=== PATIENT | female | born 1935 | race Caucasian/White ===

== ENCOUNTER 2017-11-27 14:14 | Observation (INO) | payer MEDICARE, OTHER ==
[2017-11-27] MEDS ORDERED: Nitroglycerin 0.2 MG/HR PATCH* (5 MG) TRANSDERM ONE (14:31)
[2017-11-27] MEDS ORDERED: Aspirin 81 mg CHEW TAB* 81 MG TAB.CHEW PO ONE (14:31)
--- NOTE | 2017-11-27 14:39 | ED ---
HPI Chest Pain - HPI Summary HPI Summary: This is sarah Jenkins documenting for attending Dr. Vince Elise This patient is a 82 year old F presenting to [facility] accompanied by her family with a chief complaint of waxing and waning CP since 11/26/17 PM. PMHx NC (small ) 11/19/17. She endorses SOB, dyspnea upon exertion, shoulder and arm pain causing decreased ROM, pedal edema. Pt denies abd pain, fever, and cough Pt denies PMHx DM, HTN, COPD, emphysema; pt quit smoking a couple of days ago. Pt notes that at 1315 she took NTG and 81mg ASA, which alleviated sx. - History of Current Complaint Chief Complaint: EDShortnessOfBreath Time Seen by Provider: 11/27/17 14:24 Hx Obtained From: Patient Onset/Duration: Started Hours Ago, Still Present Timing: Intermittent - waxing and waning Initial Severity: Moderate Current Severity: Moderate Pain Intensity: 6 Pain Scale Used: 0-10 Numeric Chest Pain Location: Diffuse Chest Pain Radiates: Yes Chest Pain Radiates To:: Arm - bilateral Character: Dyspnea at Exertion Aggravating Factor(s): Exertion Alleviating Factor(s): Medication - ASA, NTG, NTG 123 Associated Signs and Symptoms: Positive: Chest Pain, Shortness of Breath, Edema. Negative: Fever, Cough, Productive Cough, Nonproductive Cough, Abdominal Pain - Allergy/Home Medications Allergies/Adverse Reactions: Allergies Allergy/AdvReac Type Severity Reaction Status Date / Time codeine AdvReac Intermediate Nausea Verified 11/27/17 14:43 METAL Allergy Rash Uncoded 11/27/17 14:42 PMH/Surg Hx/FS Hx/Imm Hx Endocrine/Hematology History: Denies: Hx Diabetes, Hx Systemic Lupus Erythematosus, Hx Sickle Cell Disease Cardiovascular History: Reports: Hx Coronary Artery Disease, Hx Myocardial Infarction - 11/19/17 Denies: Hx Congestive Heart Failure, Hx Hypertension, Hx Pacemaker/ICD, Other Cardiovascular Problems/Disorders Respiratory History: Denies: Hx Asthma, Hx Chronic Obstructive Pulmonary Disease (COPD), Other Respiratory Problems/Disorders GI History: Denies: Other GI Disorders - urinary incontinence History: Reports: Other Problems/Disorders - bladder ca Denies: Hx Dialysis, Hx Renal Disease Musculoskeletal History: Reports: Hx Arthritis, Other Musculoskeletal History - see fx Denies: Hx Rheumatoid Arthritis, Hx Osteoporosis Sensory History: Reports: Hx Cataracts, Hx Contacts or Glasses - GLASSES Denies: Hx Deafness, Hx Hearing Aid Opthamlomology History: Reports: Hx Cataracts, Hx Contacts or Glasses - GLASSES EENT History: Denies: Hx Deafness Neurological History: Reports: Hx Migraine - OCCASSIONALLY Denies: Other Neuro Impairments/Disorders - Cancer History Cancer Type, Location and Year: bladder ca 02/2012 Hx Chemotherapy: Yes - bladder Hx Radiation Therapy: No - Surgical History Surgery Procedure, Year, and Place: feet and ankles 2013 fx from fall Hx Anesthesia Reactions: No Infectious Disease History: No Infectious Disease History: Denies: Traveled Outside the [place] in Last 30 Days - Family History Known Family History: Negative: Blood Disorder - Social History Occupation: Retired Hx Substance Use: No Substance Use Type: Reports: None Hx Tobacco Use: Yes Smoking Status (MU): Former Smoker - quit 11/24/17 Review of Systems Negative: Fever Positive: Chest Pain Positive: Shortness Of Breath, Other - dyspnea upon exertion. Negative: Cough Negative: Abdominal Pain Positive: no symptoms reported Positive: Arthralgia - bilateral shoulders, Myalgia - bilateral arms All Other Systems Reviewed And Are Negative: Yes Physical Exam - Summary Physical Exam Summary: Appearance: Well appearing, no pain distress Skin: warm, dry, reflects adequate perfusion Head/face: normal Eyes: EOMI, LEONORA ENT: normal Neck: supple, non-tender Respiratory: CTA, breath sounds present Cardiovascular: RRR, pulses symmetrical Abdomen: non-tender, soft Bowel: present Musculoskeletal: normal, strength/ROM intact Neuro: normal, sensory motor intact, A&Ox3 Triage Information Reviewed: Yes Vital Signs On Initial Exam: Initial Vitals Temp Pulse Resp BP Pulse Ox 98.5 F 66 18 128/62 99 11/27/17 14:16 11/27/17 14:16 11/27/17 14:16 11/27/17 14:16 11/27/17 14:16 Vital Signs Reviewed: Yes Diagnostics - Vital Signs Vital Signs Temp Pulse Resp BP Pulse Ox 11/27/17 14:16 98.5 F 66 18 128/62 99 - Laboratory Result Diagrams: 11/27/17 14:58 11/27/17 14:58 Lab Statement: Any lab studies that have been ordered have been reviewed, and results considered in the medical decision making process. - Radiology CXR Xray Interpretation: No Acute Changes Radiology Interpretation Completed By: Radiologist - No active disease. Dr. Clarke has reviewed this report. - EKG 1439 Cardiac Rate: Bradycardia - 57 EKG Rhythm: Sinus Bradycardia ST Segment: Normal Ectopy: None EKG Interpretation: No acute changes. Chest Pain Course/Dx - Course Course Of Treatment: An 82-year-old F presents to the ED with a CC of chest pain since 11/26/17 PM (last night). (+) CP, SOB, dyspnea upon exertion, bilateral arm and shoulder pain, and pedal edema. (-) Fever, cough, abd pain. "small" NC 11/19/17, denies PMHx HTN, DM, COPD, emphysema. States NTG, ASA alleviate sx. A CXR was (-). An EKG reveals sinus bradycardia at 57 BPM, no acute changes. In the ED course, pt was given ASA and NTG. - Chest Pain Differential Diagnosis/HQI/PQRI: Acute NC, ACS, Angina, CHF, Lower Respiratory Infection - Diagnoses Provider Diagnoses: Chest pain, rule out acute myocardial infarction - Provider Notifications Discussed Care Of Patient With: Marjan Hilton Time Discussed With Above Provider: 16:00 Instructed by Provider To: Other - Accepts admission. Discharge - Sign-Out/Discharge Documenting (check all that apply): Patient Departure - admit - Discharge Plan Condition: Fair Disposition: ADMITTED TO [facility] Referrals: Kristin Billingsley MD [Primary Care Provider] - - Billing Disposition and Condition Condition: FAIR Disposition: Admitted to [facility]
--- NOTE | 2017-11-27 14:49 | RAD ---
INDICATION: Chest pain COMPARISON: February 16, 2012 TECHNIQUE: An AP portable view obtained at 1437 hours is submitted. FINDINGS: Bones/Soft Tissues: There are no acute bony findings. Cardiomediastinal: The cardiomediastinal silhouette is normal. Lungs: There are no infiltrates. There is mild hyperinflation Pleura: There are no pleural effusions. Other: None IMPRESSION: NO ACTIVE DISEASE.
[2017-11-27 15:07] LABS: ABS Basophils 0.1 10^3/ul (0-0.2); ABS Eosinophils 0.1 10^3/ul (0-0.6); ABS Lymphocytes 1.7 10^3/ul (1.0-4.8); ABS Monocytes 0.7 10^3/ul (0-0.8); ABS Neutrophils 6.6 10^3/ul (1.5-7.7); ABS Nucleated RBC 0 10^3/ul; Eosinophil % 0.6 % (0-6); Hematocrit 38 % (35-47); Hemoglobin 12.9 g/dl (12.0-16.0); Mean Corpuscular HGB Conc 34 g/dl (31-36); Mean Corpuscular Hemoglobin 31 pg (27-31); Mean Corpuscular Volume 90 fL (80-97); Mean Platelet Volume 7.9 um3 (7.4-10.4); Nucleated Red Blood Cells % 0; Platelet Count 282 10^3/ul (150-450); Red Blood Count 4.21 10^6/ul (4.00-5.40); Red Cell Distribution Width 12 % (10.5-15); White Blood Count 9.2 10^3/ul (3.5-10.8)
[2017-11-27 15:26] LABS: EGFR Non-African American 66.1 (>60)
[2017-11-27 15:27] LABS: INR 0.98 (0.77-1.02)
[2017-11-27] MEDS ORDERED: Acetaminophen TAB* 325 MG PO PRN (17:00)
[2017-11-27] MEDS: Nitro Patch/OINT Remove TOPICAL SCH (21:32)
[2017-11-27] MEDS: predniSONE TAB* 10 MG PO SCH (21:33)
[2017-11-27] MEDS: Heparin VIAL(*) 5000 UNITS/ML VIAL (FIVE THOUSAND) SUBCUT SCH (21:33)
--- NOTE | 2017-11-28 03:24 | HP ---
CC: Dr. Billingsley * HISTORY AND PHYSICAL: DATE OF ADMISSION: 11/27/17 PRIMARY CARE PROVIDER: Dr. Billingsley. CHIEF COMPLAINT: Chest pain. HISTORY OF PRESENT ILLNESS: Ms. Calderon is an 82-year-old female with a history of at least 81-[id number] history of smoking who presents to the emergency room with complaints of chest pain. The patient states that for quite sometime, she has been experiencing bilateral shoulder pain. She has had a difficult time raising her arms. She had seen Dr. Billingsley for this earlier this week and was prescribed prednisone for concerns of polymyalgia rheumatica. At that visit, the patient also mentioned complaints of chest pain. There was concern of changes on the patient's EKG and she was therefore referred to see Dr. Del Cid for a stress test. The patient states, however, at home she had increasing chest pain with exertion. This is happening more frequently. She tells me that the pain would be stabbing in nature and seem to come and go. According to the Dr. Billingsley's note, the patient described having pain that lasted for 20 minutes at a time. The patient has never experienced anything like this in the past. She does note that on the day of admission, she had increased shortness of breath above her baseline. She also admits to feeling somewhat nauseous. At this point, the patient is chest pain free. PAST MEDICAL HISTORY: 1. Bladder cancer, status post TURBT. 2. History of latent TB, status post treatment in her 20s. PAST SURGICAL HISTORY: 1. TURBT. 2. Bilateral cataract surgery. 3. Bilateral foot surgery following a fall and fracture of both heels. MEDICATIONS: 1. Aspirin 81 mg p.o. daily. 2. Omeprazole 20 mg p.o. daily. 3. Prednisone 20 mg p.o. twice daily. 4. Nitroglycerin 0.4 mg SL q.5 minutes p.r.n. chest pain. ALLERGIES: CODEINE. FAMILY HISTORY: Mom at the age of 96. Dad at the age of 97. He reportedly had heart disease. SOCIAL HISTORY: The patient currently has been smoking 4 to 5 cigarettes per day. She states that she quit the day prior to this admission. She, however, has been smoking for the last 60 years and at her peak, she was smoking 1 pack per day. She denies any alcoholic use. She worked as a school RN. She is . She has 3 children. She indicates that her son, Cornelius, would be her healthcare proxy. REVIEW OF SYSTEMS: A complete 11-system review of systems is obtained. Pertinent positives and negatives are as per HPI. In addition, the patient complains of shoulder discomfort as noted above, but no excessive headaches, changes in vision or jaw claudication. PHYSICAL EXAMINATION GENERAL: The patient is a well-developed, thin, elderly female seen sitting up in the stretcher, in no acute distress. VITAL SIGNS: Blood pressure 141/82, pulse 60, respirations 19, temp 98.5, O2 sat 100% on room air. HEENT: Pupils are equal and round. Extraocular muscles are intact. Oropharynx is clear. Oral mucosa is moist. There is no submandibular, cervical , or supraclavicular adenopathy. Thyroid is not enlarged. No thyroid nodules are noted. PULMONARY: Lungs are clear to auscultation bilaterally. CARDIAC: Normal S1, S2. Regular rate and rhythm. I do not appreciate any murmurs. ABDOMEN: Bowel sounds present. Abdomen is soft, nontender and nondistended. MUSCULOSKELETAL: There is no cyanosis or clubbing of the digits. There is full active range of motion of all 4 extremities. SKIN: Warm and dry. There are no rashes. NEURO: Cranial nerves II through XII are grossly intact. Sensation is intact to light touch throughout. Strength is 5/5 and symmetric in both upper and lower extremities bilaterally. PSYCH: The patient is alert. She is oriented x3. Affect appears appropriate. DIAGNOSTIC STUDIES/LAB DATA: WBC 9.2, hemoglobin 12.9, hematocrit 38, platelets 282. INR 0.98. Sodium 139, potassium 3.3, chloride 100, CO2 of 28, BUN 15, creatinine 0.83, glucose 88, calcium 9.7. Bilirubin 0.4, AST 19, ALT 14 , alk phos 76. Troponin 0.01. BNP 39. Albumin 3.8. Procalcitonin less than 0.1. EKG reveals normal sinus rhythm without any acute ST-T wave abnormalities. Chest x- ray: No active disease. ASSESSMENT AND PLAN: Ms. Calderon is an 82-year-old female with a history of ongoing tobacco abuse, who presents to the emergency room with complaints of chest pain and shortness of breath. 1. Chest pain and shortness of breath. The patient's story is at times concerning for unstable angina in that she states that she is getting more and more frequent chest pain; however, she described the pain to me as a stabbing type pain that is there for a just a second and then gone. According to Dr. Billingsley's outpatient note, it sounds as if the patient has described pain that had been present for approximately 20 minutes at a time. The patient regardless should have a stress test. She will be ruled out with serial troponins and a followup EKG will be obtained tomorrow morning. The decision will need to be made whether or not the patient stays in the hospital over the weekend to the obtain the stress test on Wednesday versus going home and coming back for a stress test in the next couple of days. 2. Shortness of breath. I suspect that the patient has some baseline underlying chronic obstructive pulmonary disease given her many years of smoking. However, this has never truly been identified. It is possible that the shortness of breath may be cardiac related. For now, we will monitor her symptoms. She appears quite comfortable currently with a very good oxygen saturation. Her lungs are clear. The right middle lobe on the chest x-ray appears to have perhaps some infiltrate; however, this was not read by the radiologist and her procalcitonin is negative. Therefore, I will hold off on initiating any antibiotics. 3. Bilateral shoulder pain. The patient has been started on prednisone per Dr. Billingsley for possible polymyalgia rheumatica. She was found to have elevated inflammatory markers with a sed rate of 63 and a CRP of 33.19 on 11/22/17. The patient states that she has not noticed a significant improvement in her shoulder pain symptoms since initiating the prednisone which I suspect she would have dramatic improvement if this truly was polymyalgia rheumatica causing her symptoms. I do question if osteoarthritis may be the cause of her pain as she describes pain only with movement of her arms. 4. DVT prophylaxis. According to the Adult Thrombosis Prophylaxis Risk Factor Assessment Guide, the patient has a total risk factor score of 4, making her high risk. Heparin 5000 units subcutaneous q.8 hours will be utilized as DVT prophylaxis. 5. Code status is DNR. TIME SPENT: 65 minutes were spent admitting this patient of which greater than half was spent [id number] with the patient and her family reviewing her history and performing a physical exam as well as reviewing outside records. [id number]/CPS #: [id number] TAYLOR
[2017-11-28] MEDS: Heparin VIAL(*) 5000 UNITS/ML VIAL (FIVE THOUSAND) SUBCUT SCH ×3 (05:52→21:37)
[2017-11-28] MEDS: Aspirin 81 mg CHEW TAB* 81 MG TAB.CHEW PO SCH (08:18)
[2017-11-28] MEDS: predniSONE TAB* 10 MG PO SCH ×2 (08:18→21:37)
[2017-11-28] MEDS: Omeprazole CAP* 20 MG PO SCH (08:19)
--- NOTE | 2017-11-28 10:53 | PN ---
Subjective Date of Service: 11/28/17 Interval History: Ms. Calderon denies complaint today other than bilateral shoulder pain when she raises her arms. She denies chest pain, SOB, nausea, or abdominal pain. She reports that she quite smoking two days ago and is hopeful to kick this habit. Objective Active Medications: Acetaminophen (Tylenol Tab*) 650 mg PO Q4H PRN Aspirin (Aspirin 81 Mg Chew Tab*) 81 mg PO DAILY [facility] Heparin Sodium (Porcine) (Heparin Vial(*)) 5,000 units SUBCUT Q8HR [facility] Omeprazole (Prilosec Cap*) 20 mg PO DAILY@0730 [facility] Pharmacy Profile Note (Nitro Patch/Oint Remove*) 1 note TOPICAL BEDTIME DAVON Prednisone (Deltasone Tab*) 20 mg PO BID [facility] Vital Signs: Temp Pulse Resp BP Pulse Ox 97.6 F 52 16 127/62 99 11/28/17 07:44 11/28/17 07:44 11/28/17 07:44 11/28/17 07:44 11/28/17 07:44 Oxygen Devices in Use Now: None Appearance: Female lying in bed in NAD Eyes: No Scleral Icterus Ears/Nose/Mouth/Throat: Mucous Membranes Moist Neck: Trachea Midline Respiratory: Symmetrical Chest Expansion and Respiratory Effort, Clear to Auscultation Cardiovascular: NL Sounds; No Murmurs; No JVD, No Edema Abdominal: NL Sounds; No Tenderness; No Distention Lymphatic: No Cervical Adenopathy Extremities: No Edema Skin: No Rash or Ulcers Neurological: Alert and Oriented x 3, NL Muscle Strength and Tone Nutrition: Taking PO's Result Diagrams: 11/27/17 14:58 11/27/17 14:58 Assess/Plan/Problems-Billing Assessment: Ms. Calderon is an 82 yo female with extensive smoking history though no formal diagnosis of COPD and recent concern for polymyalgia rheumatica on prednisone who was admitted on 11/27/17 with chest pain. - Patient Problems (1) Chest pain Comment: - Chest pain free. - Trops negative.EKG with Q waves in V1-V2 but no old EKGs for comparison. - Plan for stress test in AM. - Continue aspirin. (2) Polymyalgia rheumatica Comment: - Continue prednisone. (3) COPD (chronic obstructive pulmonary disease) Comment: - No formal diagnosis with PFTs but has extensive smoking history. - No evidence of exacerbation. - Recommend outpatient PFTs, smoking cessation encouraged. (4) GERD (gastroesophageal reflux disease) Comment: - Continue omeprazole. (5) DVT prophylaxis Comment: - Heparin SQ. (6) Full code status Comment: Status and Disposition: OBV. Plan for stress test in AM. Anticipate discharge to home when medically stable.
[2017-11-28] MEDS ORDERED: Docusate CAP* 100 MG PO PRN (14:22)
[2017-11-28] MEDS ORDERED: Polyethylene Glycol 3350* 17 GM PACKET PO PRN (14:22)
[2017-11-28] MEDS ORDERED: Senna TAB PO PRN (14:22)
[2017-11-28] MEDS: Nitro Patch/OINT Remove TOPICAL SCH (21:41)
[2017-11-29] MEDS ORDERED: Melatonin 3 MG TAB PO PRN (01:16)
[2017-11-29] MEDS: Heparin VIAL(*) 5000 UNITS/ML VIAL (FIVE THOUSAND) SUBCUT SCH ×2 (05:15→14:03)
[2017-11-29] MEDS: Aspirin 81 mg CHEW TAB* 81 MG TAB.CHEW PO SCH (08:08)
[2017-11-29] MEDS: predniSONE TAB* 10 MG PO SCH (08:08)
[2017-11-29] MEDS: Omeprazole CAP* 20 MG PO SCH (08:08)
[2017-11-29 09:18] LABS: EGFR Non-African American 67.1 (>60)
--- NOTE | 2017-11-29 11:14 | PN ---
Subjective Date of Service: 11/29/17 Interval History: NO chest pain overnight. C/o bilat shoulder aching unchanged from admission. Denies abd pain n/v/d. Family History: Unchanged from Admission Social History: Unchanged from Admission Past Medical History: Unchanged from Admission Objective Active Medications: Acetaminophen (Tylenol Tab*) 650 mg PO Q4H PRN PRN Reason: PAIN Aspirin (Aspirin 81 Mg Chew Tab*) 81 mg PO DAILY [facility] Last Admin: 11/29/17 08:08 Dose: 81 mg Docusate Sodium (Colace Cap*) 100 mg PO BID PRN PRN Reason: CONSTIPATION Heparin Sodium (Porcine) (Heparin Vial(*)) 5,000 units SUBCUT Q8HR [facility] Last Admin: 11/29/17 05:15 Dose: 5,000 units Melatonin (Melatonin) 3 mg PO BEDTIME PRN PRN Reason: SLEEP Last Admin: 11/29/17 01:27 Dose: 3 mg Omeprazole (Prilosec Cap*) 20 mg PO DAILY@0730 [facility] Last Admin: 11/29/17 08:08 Dose: 20 mg Polyethylene Glycol/Electrolytes (Miralax*) 17 gm PO DAILY PRN PRN Reason: CONSTIPATION Prednisone (Deltasone Tab*) 20 mg PO BID [facility] Last Admin: 11/29/17 08:08 Dose: 20 mg Senna (Senokot Tab*) 1 tab PO BEDTIME PRN PRN Reason: CONSTIPATION Last Admin: 11/28/17 21:37 Dose: 1 tab Vital Signs - 8 hr 11/29/17 11/29/17 03:09 07:13 Temperature 98.5 F 97.9 F Pulse Rate 55 54 Respiratory 20 16 Rate Blood Pressure 124/62 123/58 (mmHg) O2 Sat by Pulse 98 97 Oximetry Oxygen Devices in Use Now: None Appearance: appears comfortable resting in bed Eyes: No Scleral Icterus Ears/Nose/Mouth/Throat: Clear Oropharnyx, Mucous Membranes Moist Neck: NL Appearance and Movements; NL JVP, Trachea Midline Respiratory: Symmetrical Chest Expansion and Respiratory Effort, Clear to Auscultation Cardiovascular: NL Sounds; No Murmurs; No JVD, No Edema Abdominal: NL Sounds; No Tenderness; No Distention Extremities: No Edema, No Clubbing, Cyanosis Skin: No Rash or Ulcers Neurological: Alert and Oriented x 3 Nutrition: Taking PO's Result Diagrams: 11/27/17 14:58 11/29/17 08:36 Assess/Plan/Problems-Billing Assessment: Ms. Calderon is an 82 yo female with extensive smoking history though no formal diagnosis of COPD and recent concern for polymyalgia rheumatica on prednisone who was admitted on 11/27/17 with chest pain. - Patient Problems (1) Chest pain Status: Acute Code(s): R07.9 - CHEST PAIN, UNSPECIFIED SNOMED Code(s): 21865920 Comment: - Chest pain free- stress this AM, - Trops trended and negative - EKG with Q waves in V1-V2 but no old EKGs for comparison. - Continue aspirin. (2) COPD (chronic obstructive pulmonary disease) Status: Acute Code(s): J44.9 - CHRONIC OBSTRUCTIVE PULMONARY DISEASE, UNSPECIFIED SNOMED Code(s): 53091585 Comment: - No formal diagnosis with PFTs but has extensive smoking history. - No evidence of exacerbation. - Recommend outpatient PFTs, smoking cessation encouraged. (3) GERD (gastroesophageal reflux disease) Status: Acute Code(s): K21.9 - GASTRO-ESOPHAGEAL REFLUX DISEASE WITHOUT ESOPHAGITIS SNOMED Code(s): 806135845 Comment: - Continue omeprazole. (4) DVT prophylaxis Status: Acute Code(s): UBJ1020 - SNOMED Code(s): 045038327 Comment: - Heparin SQ. (5) Full code status Status: Acute Code(s): Z78.9 - OTHER SPECIFIED HEALTH STATUS SNOMED Code(s) : 174474783 Comment: Status and Disposition: OBV. discharge to home
--- NOTE | 2017-11-29 12:41 | RAD ---
Edited for charges. Indication: Chest pain. Myocardial perfusion scan was performed utilizing 1 day protocol. Rest myocardial perfusion was performed after intravenous injection of 10.44 mCi of technetium 99 and tetrofosmin. Pharmacological stress was applied and 25.4 mCi of technetium 99 and tetrofosmin was injected for the stress portion of the study. There is homogeneous distribution of the radiotracer throughout the left ventricle. There is no evidence of any fixed or reversible perfusion defect identified. Ejection fraction at stress is 83%. Evaluation of wall motion demonstrates no focal wall motion abnormality. IMPRESSION: No evidence of any fixed or reversible perfusion defect is identified. ASSESSMENT: Low risk Based on imaging criteria from ACC/AHA 2002 Guideline Update for the Management of Patients With Chronic Stable Angina Table 23. Noninvasive Risk Stratification. MTDD
[2017-11-29] MEDS ORDERED: Regadenoson* 0.4 MG/5 ML SYRINGE ONE (13:50)
[2017-11-29 16:30] VITALS: BP 117/55
[2017-11-30 19:06] LABS: B garinii/B afzelii PCR Negative (Negative)
--- NOTE | 2017-12-01 02:58 | DS ---
DISCHARGE SUMMARY: DATE OF ADMISSION: 11/27/17 DATE OF DISCHARGE: 11/29/17 PROVIDER: Kaye Currie NP. ATTENDING PHYSICIAN: Dr. Corinne Saavedra * (dictated by Kaye Currie NP). PRIMARY CARE PROVIDER: Dr. Billingsley. PRIMARY DIAGNOSIS: Chest pain, noncardiac. SECONDARY DIAGNOSES: 1. History of latent TB. 2. History of bladder cancer. STUDIES COMPLETED WHILE IN THE HOSPITAL: The patient had a chest x-ray on 11/27. Radiologist impression: No active disease. She had a nuclear stress test on 11/29/17, impression was low risk, no evidence of any fixed or reversible perfusion deficits were identified. DISCHARGE MEDICATIONS: No new home medications. Continued home medications: 1. Nitroglycerin 0.4 mg q.5 minutes as needed. 2. Prednisone 20 mg p.o. b.i.d. 3. Omeprazole 20 mg p.o. daily. 4. Aspirin 81 mg p.o. daily. 5. Acetaminophen 650 mg q.4 hours as needed for pain. HISTORY OF PRESENT ILLNESS AND HOSPITAL COURSE: Ms. Calderon is an 82-year- old female patient who has a history of at least 40 pack-year history of smoking , who presented to the emergency room with complaints of chest pain. The patient states that for quite sometime, she has been experiencing bilateral shoulder pain and difficult to time raising her arms. She has seen Dr. Billingsley earlier this week and was prescribed prednisone for concerns of polymyalgia rheumatic. At that visit, the patient also mentioned complaints of chest pain. There was a concern of changes in the patient's EKG; therefore, she was referred to Dr. Del Cid for a stress test. The patient states, however, at home she had increased chest pain with exertion and that was happening more frequently. She reports that the pain was stabbing in nature and seem to come and go. According to the Dr. Billingsley's note, the patient describes the pain is lasting approximately 20 minutes at a time. The patient has never experienced anything like this in the past and does note on the day of admission, she had increased shortness of breath above her baseline. She was also feeling somewhat nauseous. Due to these concerns of chest pain and shortness of breath , we were asked to see and evaluate her for admission in the emergency room. She was placed on the monitor, routine lab work was drawn. Her troponin remains negative at 0.01, 0.00, and 0.03. Her BNP was 39, procalcitonin was less than 0.1. Her potassium level on admission was low at 3.3. While in the hospital, the patient was monitored on telemetry. She had no arrhythmias during her hospitalization. She did have a nuclear stress test with low risk that showed no perfusion deficits. Given her negative stress test and no further complaints, the patient is stable for discharge home. Ms. Calderon will be discharged home today. Vital signs are as follows: Temperature was 98.3, heart rate is 65, respirations 18, O2 saturation 99%, blood pressure is 117/55. DISCHARGE PLAN: Ms. Calderon will be discharged back home. Activity as tolerated. 1. Chest pain. I suspect that this chest pain is noncardiac. This could be muscle skeletal in nature. She does complain of bilateral shoulder pain worse with movement and was concerned about Lyme disease. I did add a Lyme titer. I told her she will need to follow up with her primary care provider for results of her Lyme titer. She can take Tylenol as needed for pain or ibuprofen. Her troponins remain negative throughout her hospitalization. She did have a negative nuclear stress test. 2. Hypokalemia. She did have hypokalemia during her hospitalization. Her potassium was replaced and repeat potassium was 4.9. The patient should follow up with her primary care provider in 1 to 2 weeks. The patient was asked to return to the emergency room for any increased chest pain or shortness of breath or any other concerning symptoms. This is a summarization of her hospitalization. For further details, please see the entire medical record. TIME SPENT: Time spent on this discharge was approximately 60 minutes, greater than half that time was spent with the patient discussing discharge plans and instructions. CONDITION AT DISCHARGE: Stable. KAYE CURRIE NP [id number]/[facility] #: [id number] TAYLOR
== END 2017-11-29 17:28 | disposition home or self-care (01) ==
LOC: ED 14:14 → MEDTELE 17:18
PROVIDERS: ADMIT Hospitalist; ATTEND Internal Medicine
DX: R07.9 Chest pain, unspecified (principal); J44.9 Chronic obstructive pulmonary disease, unspecified; K21.9 Gastro-esophageal reflux disease without esophagitis; R06.02 Shortness of breath; R60.9 Edema, unspecified; E87.6 Hypokalemia; Z87.891 Personal history of nicotine dependence; Z79.82 Long term (current) use of aspirin; Z85.51 Personal history of malignant neoplasm of bladder; Z86.11 Personal history of tuberculosis
CPT/HCPCS: 36415; 71045; 78452; 80048; 80053; 83735; 83880; 84145; 84484; 85025; 85610; 85730; 87476; 87798; 93005; 93017; 99284; A9270-GY; A9502; G0378; J1644; J2785; J7512

== ENCOUNTER 2018-08-17 05:51 | Day surgery (SDC) | payer MEDICARE, OTHER ==
--- NOTE | 2018-08-04 06:31 | HP ---
CC: Dr. Billingsley * HISTORY AND PHYSICAL: DATE OF PLANNED ADMISSION AND SURGERY: 08/17/18 HISTORY OF PRESENT ILLNESS: Ms. Calderon is an 83-year-old white female who is admitted with multiple suspicious bladder lesions for cystoscopy and excisional biopsies. Ms. 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 At that time, the CT urogram showed normal upper tracts and normal ureters and the only abnormal finding was the filling defect in the right base of the bladder. She underwent a cystoscopy and excisional biopsy of the bladder lesion. The pathology showed a low-grade noninvasive transitional cell carcinoma. The patient was given 1 dose of intravesical mitomycin-C in the recovery room. She did not receive BCG treatments. She had follow up periodic surveillance cystoscopies, which showed no evidence of recurrent disease. She had remained totally asymptomatic having no voiding symptoms and no gross hematuria. She had a recent surveillance cystoscopy in the office. The examination showed multiple flat lesions in the left lateral bladder wall that had the gross appearance of flat, low-grade transitional cell carcinomas. The patient now is admitted for excisional biopsies and fulguration of the above lesions. PAST MEDICAL HISTORY AND SYSTEM REVIEW: The patient had been a chronic heavy smoker of half pack per day for almost 50 years. She has minimal symptoms of COPD. She denies any cardiac or pulmonary symptoms. She also denies any gross hematuria or any voiding symptoms. The patient has chronic constipation and is on laxatives. MEDICATIONS: She is on no prescription medications. ALLERGIES: She reports being allergic to CODEINE, KEFLEX, and OXYCODONE. FAMILY HISTORY: Negative. PHYSICAL EXAMINATION GENERAL: She is a pleasant white female who looks good for her age. VITAL SIGNS: Blood pressure 120/80, pulse of 80, oxygen saturation 98% on room air. LUNGS: Clear and resonant without wheezing. HEART: Regular and rhythmic. No murmurs. ABDOMEN: Soft. No masses, no tenderness. No CVA tenderness. PELVIC: Examination done at the time of the cystoscopy showed no pelvic masses. IMPRESSION: Suspicious recurrent flat bladder lesions probably representing low- grade transitional cell carcinomas of the bladder wall. PLAN: Cystoscopy and excisional biopsies and fulgurations of the above lesions. If the lesions do confirm that they are transitional cell carcinomas, workup of the upper tracts with CT urogram will be performed. I discussed the above plans in detail with the patient. All her questions were answered. [id number]/[facility] #: [id number] MTDD
[~2018-08-17 05:51] MED LIST: Buffered Lidocaine 1% SYRIN* 1 ML/SYRINGE INTRADERM ONE; Ondansetron TAB* 4 MG PO ONE
[2018-08-17] MEDS ORDERED: Dexamethasone TAB* 6 MG PO ONE (06:00)
[2018-08-17] MEDS ORDERED: Lactated Ringers 1000 ML Bag* 1,000 ML IV SCH (06:00)
[2018-08-17] MEDS ORDERED: Famotidine IV* 10 MG/ML 2 ML (20 mg) IV ONE (06:00)
[2018-08-17] MEDS ORDERED: Ondansetron ODT TAB* 4 MG ONE (06:20)
[2018-08-17] MEDS ORDERED: Dexamethasone TAB* 4 MG ONE (06:21)
[2018-08-17] MEDS ORDERED: Famotidine IV* 10 MG/ML 2 ML (20 mg) ONE (06:21)
[2018-08-17] MEDS ORDERED: Levofloxacin 500 MG IVPREMIX(* 500 MG/100 ML BAG IVPB ONE (06:21)
[2018-08-17] MEDS ORDERED: Buffered Lidocaine 1% SYRIN* 1 ML/SYRINGE INTRADERM ONE (06:21)
[2018-08-17] MEDS ORDERED: Naloxone* 0.4 MG/ML 1 ML VIAL IV PRN (06:37)
[2018-08-17] MEDS ORDERED: Morphine 4 MG/ML VIAL (1 ml) 4 MG/ML VIAL IV PRN (06:37)
[2018-08-17] MEDS ORDERED: fentaNYL* 50 MCG/ML 2 ML VIAL (100 MCG VIAL) IV PRN (06:37)
[2018-08-17] MEDS ORDERED: PROCHLORPERAZINE INJ 5 MG/ML 2 ML VIAL IV PRN (06:37)
[2018-08-17] MEDS ORDERED: DiMENhydriNATE IV* 50 MG/ML VIAL IV PUSH PRN (06:37)
[2018-08-17] MEDS ORDERED: KETAMINE HCL* 50 MG/ML 10 ML VIAL ONE (07:09)
[2018-08-17] MEDS ORDERED: fentaNYL* 50 MCG/ML 2 ML VIAL (100 MCG VIAL) ONE (07:09)
[2018-08-17] MEDS ORDERED: Midazolam* 1 MG/ML 2 ML VIAL (2 MG) ONE (07:10)
[2018-08-17] MEDS ORDERED: EPHEDrine (Pressors)* 50 MG/ML VIAL ONE (08:14)
[2018-08-17] MEDS ORDERED: Propofol* 10 MG/ML 20 ML BTL ONE (08:14)
[2018-08-17] MEDS ORDERED: Phenylephrine 10 MG/ML VIAL* 1 ML VIAL ONE (08:14)
[2018-08-17] MEDS ORDERED: mitoMYcin PWD* 40 MG in Sterile Water for Inj* 40 ML IRRIGATION ONE (09:00)
[2018-08-17 10:12] VITALS: BP 122/60
--- NOTE | 2018-08-17 10:50 | OP ---
CC: Dr. Kristin Billingsley * DATE OF OPERATION: 08/17/18 - [facility] DATE OF : 39 SURGEON: Terrell Kearney MD ANESTHESIOLOGIST: Dr. Carlos Del Rosario ANESTHESIA: General. PRE-OP DIAGNOSIS: Bladder tumor (left base). POST-OP DIAGNOSIS: Bladder tumor (left base). OPERATIVE PROCEDURE: 1. Cystoscopy. 2. Excisional biopsies and fulguration of bladder tumor of left base (2 to 3 cm ). INDICATION FOR PROCEDURE: Ms. Calderon is an 83-year-old heavy chronic smoker who was diagnosed in 2011 with a 2 cm, low grade, non-invasive transitional cell carcinoma of the urinary bladder. CT urogram at that time was negative. She was treated with 1 dose of intravesical mitomycin-C in the PACU. Because of the nature of the tumor, no additional treatment was given and she had been followed with periodic cystoscopies. Recent office cystoscopy showed flat, low grade looking tumor involving the left base of the bladder. Because of the above finding, the patient is admitted for the above procedure. PATHOLOGY AT CYSTOSCOPY: The ureteral orifices and the trigone looked normal. There was flat, irregular mucosa lateral to the left trigone and ureteral orifice. There were also two 5 mm papillary lesions. All the above described pathology had the gross appearance of well differentiated, superficial, flat transitional cell carcinoma. Examination of the rest of the bladder was normal. There were no lesions to suggest carcinoma in situ and no other suspicious lesions seen. The ureteral orifices looked normal. DESCRIPTION OF PROCEDURE: After successful general anesthesia, patient was placed in the lithotomy position and was prepped and draped for a cystoscopy. Cystoscopy was performed. The bladder was carefully inspected and the above findings were noted. Using the rigid biopsy forceps, three biopsies were obtained from the above described lesions. There were muscle fibers seen at the base of the biopsy. There was no perforation of the bladder wall. Using the Bugbee electrode, the sites of the biopsies and all the other lesions were thoroughly fulgurated. At the completion of the procedure, there was no gross residual tumor seen. There was good hemostasis. There was no evidence of any bladder perforation. The cystoscope was removed. A size 16-[place] Perry catheter was placed. The patient tolerated the procedure well and left the operating room in good condition. The plan is to give the patient 1 dose of intravesical mitomycin-C in the PACU. The patient will be seen in the office on followup. We will decide on the need for additional treatment for her tumor depending upon the pathology. [id number]/[facility] #: [id number] MTDD
== END 2018-08-17 10:19 | disposition home or self-care (01) ==
LOC: OR 05:51
PROVIDERS: ATTEND Urology
DX: N32.9 Bladder disorder, unspecified (principal); C67.9 Malignant neoplasm of bladder, unspecified; J44.9 Chronic obstructive pulmonary disease, unspecified; Z88.5 Allergy status to narcotic agent; Z88.8 Allergy status to other drugs, medicaments and biological substances
CPT/HCPCS: 88305; A9270-GY; J1956; J2250; J2704; J3010; J8540; J9280

== ENCOUNTER 2022-06-18 12:27 | Inpatient (IN) ==
[2022-06-18] MEDS ORDERED: Piperacillin/Tazobac ADVAN 3.375 GM in NS 0.9% 100 ml BAG 100 ML IV ONE (14:56)
[2022-06-18 15:27] LABS: ABS Lymphocytes 0.8 10^3/ul (1.0-4.8); ABS Monocytes 0.7 10^3/ul (0-0.8); ABS Neutrophils 9.4 10^3/ul (1.5-7.7); Hematocrit 40 % (35-47); Hemoglobin 13.2 g/dL (12.0-16.0); Lymphocyte % 6.9 %; Mean Corpuscular HGB Conc 33 g/dL (31-36); Mean Corpuscular Hemoglobin 30 pg (27-31); Mean Corpuscular Volume 92 fL (80-97); Platelet Count 163 10^3/uL (150-450); Red Blood Count 4.39 10^6 /uL (3.70-4.87); Red Cell Distribution Width 14 % (10-15); White Blood Count 10.9 10^3/uL (3.5-10.8)
[2022-06-18] MEDS ORDERED: Lactated Ringers 1000 ml BAG 1,000 ML IV ONE (15:46)
[2022-06-18 15:58] LABS: Albumin 3.7 g/dL (3.2-5.2); Albumin/Globulin Ratio 1.4 (1-3); C Reactive Protein 76.53 mg/L (<8.01); Calcium 8.9 mg/dL (8.6-10.3); Creatinine, Serum 1.06 mg/dL (0.51-0.95); Globulin 2.6 g/dL (2-4); Potassium 3.7 mmol/L (3.5-5.0); Total Bilirubin 0.6 mg/dL (0.2-1.0); Total Protein 6.3 g/dL (6.4-8.9); eGFR CKD-EPI 51.5 (>60)
[2022-06-18] MEDS: Enoxaparin 40 MG/0.4 ML SYR SUBCUT SCH (16:15)
[2022-06-18 18:49] LABS: Vitamin D Total 25(OH) 19.8 ng/mL (20-50)
[2022-06-18] MEDS ORDERED: cefTRIAXone 2 gm/50 mL D5W 2 GM/50 ML BAG IV SCH (21:00)
[2022-06-18] MEDS ORDERED: cefTRIAXone 2 GM ADDV.VIAL 2 GM in NS 0.9% 100 ml BAG 100 ML IV SCH (21:00)
[2022-06-19 06:16] LABS: ABS Lymphocytes 0.9 10^3/ul (1.0-4.8); ABS Monocytes 0.5 10^3/ul (0-0.8); ABS Neutrophils 5.8 10^3/ul (1.5-7.7); Eosinophil % 0.1 %; Hematocrit 38 % (35-47); Hemoglobin 12.8 g/dL (12.0-16.0); Lymphocyte % 12.2 %; Mean Corpuscular HGB Conc 34 g/dL (31-36); Mean Corpuscular Hemoglobin 31 pg (27-31); Mean Corpuscular Volume 91 fL (80-97); Mean Platelet Volume 8.2 fL (7.4-10.4); Platelet Count 162 10^3/uL (150-450); Red Blood Count 4.15 10^6 /uL (3.70-4.87); Red Cell Distribution Width 14 % (10-15); White Blood Count 7.2 10^3/uL (3.5-10.8)
[2022-06-19 06:37] LABS: Urine Appearance Cloudy; Urine Bilirubin Negative (Negative); Urine Blood 1+ (Negative); Urine Color Yellow; Urine Glucose Negative (Negative); Urine Ketones Negative (Negative); Urine Nitrite Negative (Negative); Urine Protein 1+(30 mg/dL) (Negative); Urine Specific Gravity 1.024 (1.002-1.030); Urine Urobilinogen Negative (Negative)
[2022-06-19 06:46] LABS: Urine Bacteria Absent (Absent); Urine Red Blood Cell Trace(0-2/hpf) (Absent); Urine Squamous Epithelial Cell Present (Absent); Urine White Blood Cell 1+(6-10/hpf) (Absent)
[2022-06-19 06:55] LABS: Albumin 3.3 g/dL (3.2-5.2); Albumin/Globulin Ratio 1.4 (1-3); Calcium 8.2 mg/dL (8.6-10.3); Creatinine, Serum 0.94 mg/dL (0.51-0.95); Globulin 2.3 g/dL (2-4); Magnesium 1.9 mg/dL (1.9-2.7); Potassium 3.2 mmol/L (3.5-5.0); Total Bilirubin 0.6 mg/dL (0.2-1.0); Total Protein 5.6 g/dL (6.4-8.9); eGFR CKD-EPI 59.5 (>60)
[2022-06-19] MEDS ORDERED: NS 0.9% 1000 ml BAG 1,000 ML IV ONE (07:00)
[2022-06-19] MEDS: KCL 20 MEQ/100 ML IVPREMIX 20 MEQ/100 ML BAG IV SCH ×2 (08:56→13:08)
[2022-06-19] MEDS ORDERED: Midazolam 5 mg/5 ml VIAL 1 mg/ml 5 ml VIAL (5 mg) ONE (11:27)
[2022-06-19] MEDS ORDERED: Flumazenil 0.5 mg/5 ml 0.1 MG/ML 5 ml VIAL ONE (11:27)
[2022-06-19] MEDS ORDERED: fentaNYL 100 mcg/2 ml 50 MCG/ML VIAL ONE (11:27)
[2022-06-19] MEDS ORDERED: Naloxone 0.4 mg VIAL 0.4 mg/ml 1 ml VIAL ONE (11:27)
[2022-06-19] MEDS ORDERED: fentaNYL 100 mcg/2 ml 50 MCG/ML VIAL IV SLOW PU ONE (11:57)
[2022-06-19] MEDS ORDERED: Midazolam 10 mg/10 ml VIAL 1 mg/ml 10 ml VIAL (10 mg) IV SLOW PU ONE (11:57)
[2022-06-19] MEDS ORDERED: Flumazenil 0.5 mg/5 ml 0.1 MG/ML 5 ml VIAL IV PRN (11:57)
[2022-06-19] MEDS ORDERED: Naloxone 0.4 mg VIAL 0.4 mg/ml 1 ml VIAL IV PUSH PRN (11:57)
[2022-06-19] MEDS ORDERED: cefTRIAXone 2 GM ADDV.VIAL 2 GM in NS 0.9% 100 ml BAG 100 ML IV SCH (13:00)
[2022-06-19] MEDS: Enoxaparin 40 MG/0.4 ML SYR SUBCUT SCH (17:28)
[2022-06-20] MEDS: cefTRIAXone 2 GM ADDV.VIAL 2 GM in NS 0.9% 100 ml BAG 100 ML IV SCH (06:04)
[2022-06-20 07:48] LABS: ABS Eosinophils 0.1 10^3/ul (0-0.6); ABS Lymphocytes 1.1 10^3/ul (1.0-4.8); ABS Monocytes 0.5 10^3/ul (0-0.8); ABS Neutrophils 2.7 10^3/ul (1.5-7.7); Eosinophil % 1.2 %; Hematocrit 35 % (35-47); Hemoglobin 11.9 g/dL (12.0-16.0); Lymphocyte % 24.8 %; Mean Corpuscular HGB Conc 34 g/dL (31-36); Mean Corpuscular Hemoglobin 30 pg (27-31); Mean Corpuscular Volume 90 fL (80-97); Mean Platelet Volume 8.8 fL (7.4-10.4); Nucleated Red Blood Cells % 0.1; Platelet Count 154 10^3/uL (150-450); Red Blood Count 3.92 10^6 /uL (3.70-4.87); Red Cell Distribution Width 14 % (10-15); White Blood Count 4.3 10^3/uL (3.5-10.8)
[2022-06-20 08:03] LABS: Calcium 8.2 mg/dL (8.6-10.3); Creatinine, Serum 0.75 mg/dL (0.51-0.95); Potassium 3.8 mmol/L (3.5-5.0)
[2022-06-20] MEDS: Enoxaparin 40 MG/0.4 ML SYR SUBCUT SCH (17:37)
[2022-06-21 05:24] LABS: ABS Basophils 0.1 10^3/ul (0-0.2); ABS Eosinophils 0.1 10^3/ul (0-0.6); ABS Lymphocytes 1.7 10^3/ul (1.0-4.8); ABS Monocytes 0.5 10^3/ul (0-0.8); ABS Neutrophils 1.9 10^3/ul (1.5-7.7); Eosinophil % 2.4 %; Hematocrit 36 % (35-47); Hemoglobin 11.7 g/dL (12.0-16.0); Lymphocyte % 39.8 %; Mean Corpuscular HGB Conc 33 g/dL (31-36); Mean Corpuscular Hemoglobin 29 pg (27-31); Mean Corpuscular Volume 90 fL (80-97); Mean Platelet Volume 8.1 fL (7.4-10.4); Nucleated Red Blood Cells % 0.1; Platelet Count 183 10^3/uL (150-450); Red Cell Distribution Width 13 % (10-15); White Blood Count 4.3 10^3/uL (3.5-10.8)
[2022-06-21 05:44] LABS: Calcium 8.4 mg/dL (8.6-10.3); Creatinine, Serum 0.82 mg/dL (0.51-0.95); Potassium 3.9 mmol/L (3.5-5.0); eGFR CKD-EPI 70.1 (>60)
[2022-06-21] MEDS: cefTRIAXone 2 GM ADDV.VIAL 2 GM in NS 0.9% 100 ml BAG 100 ML IV SCH (05:52)
[2022-06-21] MEDS: Enoxaparin 40 MG/0.4 ML SYR SUBCUT SCH (16:54)
[2022-06-22] MEDS: cefTRIAXone 2 GM ADDV.VIAL 2 GM in NS 0.9% 100 ml BAG 100 ML IV SCH (05:47)
[2022-06-22] MEDS: Enoxaparin 40 MG/0.4 ML SYR SUBCUT SCH (16:32)
[2022-06-23 05:45] LABS: ABS Eosinophils 0.1 10^3/ul (0-0.6); ABS Lymphocytes 1.2 10^3/ul (1.0-4.8); ABS Monocytes 0.4 10^3/ul (0-0.8); ABS Neutrophils 2.4 10^3/ul (1.5-7.7); Eosinophil % 2.5 %; Hematocrit 37 % (35-47); Hemoglobin 12.1 g/dL (12.0-16.0); Lymphocyte % 29.3 %; Mean Corpuscular HGB Conc 33 g/dL (31-36); Mean Corpuscular Hemoglobin 30 pg (27-31); Mean Corpuscular Volume 91 fL (80-97); Mean Platelet Volume 8.4 fL (7.4-10.4); Nucleated Red Blood Cells % 0.1; Platelet Count 205 10^3/uL (150-450); Red Blood Count 4.11 10^6 /uL (3.70-4.87); Red Cell Distribution Width 14 % (10-15); White Blood Count 4.3 10^3/uL (3.5-10.8)
[2022-06-23 06:11] LABS: Calcium 9.2 mg/dL (8.6-10.3); Creatinine, Serum 0.7 mg/dL (0.51-0.95); Magnesium 2.1 mg/dL (1.9-2.7); Phosphorus 3.3 mg/dL (2.5-5.0); Potassium 4.2 mmol/L (3.5-5.0); eGFR CKD-EPI 84.7 (>60)
[2022-06-23] MEDS: cefTRIAXone 2 GM ADDV.VIAL 2 GM in NS 0.9% 100 ml BAG 100 ML IV SCH (06:12)
[2022-06-23] MEDS ORDERED: Lidocaine 1% MPF 5 ML VIAL INJ ONE (11:16)
[2022-06-23] MEDS: Enoxaparin 40 MG/0.4 ML SYR SUBCUT SCH (15:36)
[2022-06-24] MEDS: cefTRIAXone 2 GM ADDV.VIAL 2 GM in NS 0.9% 100 ml BAG 100 ML IV SCH (05:46)
[2022-06-24 10:34] VITALS: BP 115/65
== END 2022-06-24 14:30 | disposition home or self-care (01) | DRG 289 ==
LOC: ED 12:27 → SUATTDRO 14:57 → EDHOLD 14:57 → MED 06-19 13:58
PROVIDERS: ADMIT Internal Medicine; ATTEND Internal Medicine

== ENCOUNTER 2024-01-27 13:41 | Observation (INO) ==
[2024-01-27 15:18] LABS: ABS Monocytes 0.6 10^3/uL (0.0-0.9); ABS Neutrophils 4.9 10^3/uL (1.5-7.6); Eosinophil % 0.6 %; Hematocrit 39.1 % (35-45); Lymphocyte % 15.1 %; Mean Corpuscular Hemoglobin 30.3 pg (27-33); Mean Corpuscular Hgb Conc 33.4 g/dL (31-36); Mean Corpuscular Volume 90.6 fL (80-97); Mean Platelet Volume 8.7 fL (7.5-11.2); Nucleated Red Blood Cells % 0.1 %/100WBC (0.0-0.8); Platelet Count 242 10^3/uL (150-450); Red Blood Count 4.31 10^6/uL (3.63-4.92); Red Cell Distribution Width 13.8 % (12-17); White Blood Count 6.5 10^3/uL (3.8-11.8)
[2024-01-27 15:36] LABS: Urine Appearance Clear; Urine Bilirubin Negative (Negative); Urine Blood Negative (Negative); Urine Color Light-Yellow; Urine Glucose Negative (Negative); Urine Ketones Negative (Negative); Urine Nitrite 2+ (Negative); Urine Protein Negative (Negative); Urine Specific Gravity 1.011 (1.002-1.030); Urine Urobilinogen Negative (Negative); Urine pH 5.5 (5.0-8.0)
[2024-01-27 15:40] LABS: Urine Bacteria 1+ /HPF (Absent); Urine Red Blood Cell Trace(0-2/hpf) /HPF (0-Trace); Urine Squamous Epithelial Cell Present /HPF (Absent); Urine White Blood Cell Trace(0-5/hpf) /HPF (0-Trace)
[2024-01-27 15:47] LABS: Albumin 3.8 g/dL (3.2-5.2); Albumin/Globulin Ratio 1.4 (1-3); Calcium 9.6 mg/dL (8.6-10.3); Creatinine, Serum 1.01 mg/dL (0.51-0.95); Globulin 2.7 g/dL (2-4); Total Bilirubin 0.5 mg/dL (0.2-1.0); Total Protein 6.5 g/dL (6.4-8.9); eGFR CKD-EPI 54.2 (>60)
[2024-01-27 16:01] LABS: TSH Ultra Thyroid Stim Horm 3.77 mcIU/mL (0.34-5.60)
[2024-01-27 16:44] LABS: High Sensitivity Troponin 1 Hr 4 pg/mL (<15)
[2024-01-27] MEDS: cefTRIAXone 1 gm/50 mL D5W 1 GM/50 ML BAG IV ONE (17:47)
[2024-01-27] MEDS ORDERED: Polyethylene Glycol 3350 17 GM PACKET PO PRN (18:07)
[2024-01-27] MEDS ORDERED: Senna TAB 8.6 mg TAB PO PRN (18:07)
[2024-01-27 18:34] LABS: C Reactive Protein 2.58 mg/L (<8.01)
[2024-01-27] MEDS: Sulfamethox/Trimethoprim DS TAB 800/160 mg PO ONE (23:41)
[2024-01-28] MEDS: Enoxaparin 40 MG/0.4 ML SYR SUBCUT SCH (00:27)
[2024-01-28 14:47] VITALS: BP 139/88
== END 2024-01-28 16:37 | disposition home or self-care (01) ==
LOC: EDHOLD 13:41 → ED 13:41 → MEDTELE 01-28 00:09
PROVIDERS: ADMIT Internal Medicine; ATTEND Student in an Organized Health Care Education/Training Program